=== PATIENT | male | born 2000 | race Caucasian/White ===

== ENCOUNTER 2021-01-15 20:26 | Emergency (ER) | payer OTHER, SELFPAY ==
--- NOTE | ~2021-01-15 | XR_ITS ---
EXAMINATION: XR SHOULDER, RIGHT CLINICAL INFORMATION: Fall. Evaluate for shoulder dislocation. COMPARISON: None TECHNIQUE: Two views of the right shoulder. FINDINGS: There is an anterior-inferior dislocation of the humeral head with respect to the glenoid. No definite fractures are identified. The acromioclavicular joint and coracoid processes are intact. The visualized right-sided clavicle and right-sided ribs are unremarkable. XR/XR shoulder RT min 2V IMPRESSION: Anteroinferior dislocation of the right shoulder.
--- NOTE | ~2021-01-15 | XR_ITS ---
EXAMINATION: XR SHOULDER, RIGHT CLINICAL INFORMATION: Post reduction right shoulder COMPARISON: Radiographs earlier today TECHNIQUE: Two views of the right shoulder. FINDINGS: The right glenohumeral joint is now in anatomic position. No fractures are seen. XR/XR shoulder RT min 2V IMPRESSION: Successful reduction of dislocation with no fracture.
[2021-01-15 20:37] VITALS: BP 159/93; PULSE 55; RESP 18; TEMP 36.1; O2SAT 100; BMI 29.8
[2021-01-15] MEDS: Morphine Sulfate 4 MG/ML CARTRIDGE IVPUSH (20:59)
[2021-01-15] MEDS: ondansetron HCL 4 MG/2 ML VIAL IVPUSH (20:59)
--- NOTE | 2021-01-15 21:07 | ED_ITS ---
HPI - Extremity Injury (Upper) General Chief Complaint: Extremity Injury, Upper Stated Complaint: shoulder pain Time Seen by Provider: 01/15/21 20:33 Source: patient Mode of arrival: ambulatory Limitations: no limitations History of Present Illness MD complaint: injury to: right and shoulder Onset (ago): minute(s) (Prior to arrival) Other Extremity Injury: right: shoulder Other injuries: none Handedness: right Place: school Severity: severe Severity scale (1-10): >10 Relieving factors: none Exacerbating factors: movement of extremity Context: fall and sports-related injury Associated symptoms: denies other symptoms Treatments prior to arrival: cold therapy and other (Receive 100 mcg fentanyl via EMS IV prior to arrival) Related Data Previous Rx's Medication Instructions Recorded acetaminophen 500 mg tablet 1,000 mg PO QID PRN #14 tab 01/15/21 (Tylenol Extra Strength) ibuprofen 800 mg tablet 800 mg PO Q8H PRN #14 tab 01/15/21 oxycodone 5 mg tablet 5 mg PO Q6H PRN #14 tab 01/15/21 Allergies Allergy/AdvReac Type Severity Reaction Status Date / Time No Known Allergies Allergy Verified 01/15/21 20:40 [No Known Allergies*] Review of Systems Review of Systems: Constitutional : No Weight loss, No Fever, No Chills, No Night Sweats, No Fatigue, No Malaise ENT/Mouth : No Hearing loss, No Ear Pain, No Nasal Congestion, No Sinus Pain, No Hoarseness, No sore throat, No Rhinorrhea, No Swallowing Difficulty Eyes: No Eye Pain, No Swelling, No Redness, No Foreign Body, No Discharge, No Vision Changes Cardiovascular : No Chest Pain, No SOB, No Dyspnea on Exertion, No Orthopnea, No Edema, No Palpitations Respiratory : No Cough, No Sputum, No Wheezing, No Smoke Exposure, No Dyspnea Gastrointestinal : No Nausea, No Vomiting, No Diarrhea, No Constipation, No abdominal Pain, No Hematochezia, No Melena Genitourinary : no irregular bleeding, No Dysuria, No Urinary Frequency, No Hematuria, No Urinary Incontinence, No Urgency, No Flank Pain, No Urinary Flow Changes, No Hesitancy Musculoskeletal : + joint pain, No Myalgias, No Joint Swelling Skin : No Skin Lesions, No rash Neuro : No Weakness, No Numbness, No Paresthesias, No Loss of Consciousness, No Dizziness, No Headache Psych : No Anxiety/Panic, No Depression, No SI/HI/AH/VH, No Social Issues, Heme/Lymph: No Bruising, No Bleeding,No Lymphadenopathy Endocrine : No Polyuria, No Polydipsia, No Temperature Intolerance Yes all other systems are reviewed and are negative [facility] Past Medical History Attestation statement: The following information was validated with the patient. Social History Social History Advance Directives: No Physical Exam Vital Signs: Vital Signs: Last Vital Signs Temp 96.9 F 01/15/21 20:37 Pulse 55 01/15/21 20:37 Resp 18 01/15/21 20:37 BP 159/93 H 01/15/21 20:37 Pulse Ox 100 01/15/21 20:37 Body Mass Index 29.8 vital signs have been reviewed as normal and appeared to be correct. Blood pressure hypertensive 159/93 Heart rate normal. Respiration rate normal. Temperature normal. Oxygen saturation normal. Appearance: Alert. Oriented X3. No acute distress. Head: Normal external exam. Normocephalic. Atraumatic. Eyes: PERRLA. EOMI. Conjunctiva and sclera normal. Eyelids normal. ENT: Pharynx normal. Uvula midline. Moist mucous membranes. Neck: Normal inspection. Neck supple. FROM. CVS: Normal heart rate and rhythm. Respiratory: No respiratory distress. Painless inspiration. Skin: Skin warm and dry. Normal skin color. Normal skin turgor. No rashes/lesions/lacerations noted. Extremities: To right shoulder it appears anteriorly dislocated patient is holding the arm in a abduction and externally rotated and when he moves it he has severe pain unable to move it. Otherwise all other Extremities exhibit normal range of motion and nontender. Neuro: Oriented X 3. No motor deficit. No sensory deficit. Reflexes normal. Normal steady gait. No focal neuro deficits noted. Vascular: + radial pulses/+ 2 distal pedal pulses/+2 dorsalis pedis b/l. Normal cap refill. No cyanosis noted to upper extremity nails and lower extremity toes nails. Course Course Course Narrative: 20-year-old male presenting to the ED via EMS after receiving 100 mcg of fentanyl via IV after he was playing basketball at school for college and he fell onto his right shoulder and on exam has an obvious anterior shoulder dislocation. X-ray obtained and revealed anterior shoulder dislocation. Patient now status post shoulder reduction with scapular manipulation patient tolerated procedure well he was given 4 mg of Zofran and 4 mg of morphine. Now he was placed in a shoulder immobilizer/sling. Awaiting repeat x-ray of repeat x-ray reveals reduction of shoulder dislocation will DC home with instructions to return if any new or worsening symptoms to follow-up with orthopedic. Patient understands agrees with this plan. MDM - Extremity Injury (Upper) Medical Records Attestation: I reviewed the patient's medical records. Imaging Data Right shoulder x-ray: Attestation: I personally reviewed and interpreted this imaging study as follows: Radiologist's impression: FINDINGS: There is an anterior-inferior dislocation of the humeral head with respect to the glenoid. No definite fractures are identified. The acromioclavicular joint and coracoid processes are intact. The visualized right-sided clavicle and right-sided ribs are unremarkable. XR/XR shoulder RT min 2V IMPRESSION: Anteroinferior dislocation of the right shoulder. FINDINGS: The right glenohumeral joint is now in anatomic position. No fractures are seen.? XR/XR shoulder RT min 2V IMPRESSION: Successful reduction of dislocation with no fracture. Procedures Orthopedic Joint Reduction Joint #1: Time Out Performed: Yes Side: right Joint Reduction Location: shoulder Analgesia: other (Morphine and Zofran 4 mg each) Shoulder Technique Used (if applicable): scapula manipulation Post-reduction neuro exam: intact Post-reduction vascular: intact Post Reduction X-Ray Obtained: Yes Post Reduction X-Ray Results: reduced Splint Applied: Yes Patient Tolerated Procedure: well Orthopedic Splinting/Casting Injury #1: Side: right Upper Extremity Injury Location: shoulder Upper Extremity Immobilizer: sling/shoulder immobilizer Critical Care Time Critical Care Time Critical Care Time: Yes Total Critical Care Time: 60 Attestation: I personally attest to this time spent taking care of the patient Discharge Plan Discharge Clinical Impression: Dislocation of shoulder region, Fall, Sports injuries Patient Disposition: Home, Self-Care Instructions: Shoulder Dislocation (ED), Shoulder Immobilizer (ED) Prescriptions: New ibuprofen 800 mg tablet 800 mg PO Q8H PRN (Reason: pain) Qty: 14 RF: 0 oxycodone 5 mg tablet 5 mg PO Q6H PRN (Reason: pain) Qty: 14 RF: 0 acetaminophen [Tylenol Extra Strength] 500 mg tablet 1,000 mg PO QID PRN (Reason: fever or pain) Qty: 14 RF: 0 Referrals: Jd Garcia MD [Physician] - 1 day (Call tomorrow to make a follow-up appointment within the next 1-2 weeks) Stand Alone Forms: Work/School Release Print Language: Latvian
== END 2021-01-15 22:06 | disposition home or self-care (01) ==
PROVIDERS: Emergency Provider Emergency Medicine
DX: S43.014A Anterior dislocation of right humerus, initial encounter (principal); S43.034A Inferior dislocation of right humerus, initial encounter; W18.39XA Other fall on same level, initial encounter; Y93.67 Activity, basketball; Y92.310 Basketball court as the place of occurrence of the external cause; Y99.8 Other external cause status
CPT/HCPCS: 23650; 73030; 96374; 96375; 99283; 99284; J2270; J2405